=== PATIENT | female | born 1965 | race Caucasian/White ===

== ENCOUNTER 2020-01-28 22:10 | Emergency (ER) | payer SELFPAY ==
[2020-01-28 22:26] VITALS: BP 164/99; PULSE 7
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
[2020-01-29] MEDS: SULBACTAM NA IVPUSH ONE (00:17)
[2020-01-29] MEDS: Sodium Chloride 0.9% 100 ML ONE (00:17)
[2020-01-29] MEDS: AMPICILLIN IVPUSH ONE (00:17)
== END 2020-01-29 00:45 ==
LOC: CC.ED 22:10
DX: S02.85XA Fracture of orbit, unspecified, initial encounter for closed fracture (principal); S02.631A Fracture of coronoid process of right mandible, initial encounter for closed fracture; S02.841A Fracture of lateral orbital wall, right side, initial encounter for closed fracture; S02.40DA Maxillary fracture, left side, initial encounter for closed fracture; S02.40EA Zygomatic fracture, right side, initial encounter for closed fracture; F10.129 Alcohol abuse with intoxication, unspecified; I10 Essential (primary) hypertension; W01.0XXA Fall on same level from slipping, tripping and stumbling without subsequent striking against object, initial encounter; Y92.009 Unspecified place in unspecified non-institutional (private) residence as the place of occurrence of the external cause
CPT/HCPCS: 70486; 96374; 99285-25; J0295; J7050

== ENCOUNTER 2021-06-12 16:10 | Emergency (ER) | payer MEDICAID ==
[2021-06-12] MEDS ORDERED: Sodium Chloride 0.9% 10 ML Syringe FLUSH PRN (16:31)
[2021-06-12] MEDS: cloNIDine 0.1 MG Tab PO ONE (16:41)
[2021-06-12] MEDS: Acetaminophen 500 MG Tab PO ONE (16:41)
[2021-06-12] MEDS: Sodium Chloride 0.9% 1,000 ML IV SCH (16:42)
[2021-06-12 17:22] LABS: CHLORIDE,CL 98 mEq/L (98-106); SODIUM,NA 139 mEq/L (136-145)
[2021-06-12 17:33] LABS: CORONAVIRUS COVID-19 NAA NEGATIVE (NEGATIVE); RESPIRATORY SYNCYTIAL VIR NAA NEGATIVE (NEGATIVE)
[2021-06-12] MEDS: cefTRIAXone 1 GM Vial IVPUSH ONE (17:36)
== END 2021-06-12 18:10 | disposition home or self-care (01) ==
LOC: CC.ED 16:10
DX: N39.0 Urinary tract infection, site not specified (principal); I16.9 Hypertensive crisis, unspecified; I10 Essential (primary) hypertension; Z20.822 Contact with and (suspected) exposure to COVID-19
CPT/HCPCS: 0241U; 36415; 70450; 71045; 80053; 80307; 81001; 83605; 84484; 85025; 85379; 85652; 86140; 87040; 87086; 87088; 87186; 93005; 96374; 99284-25; A9270-GY; J0696; J7030

== ENCOUNTER 2024-12-20 14:38 | Observation (INO) | payer MEDICAID ==
[2024-12-20 14:59] LABS: BASOPHILS ABSOLUTE AUTO 0.06 10^3/uL (0.00-0.50); BASOPHILS PERCENT AUTO 0.9 % (0-1); EOSINOPHILS ABSOLUTE AUTO 0.02 10^3/uL (0.00-1.50); EOSINOPHILS PERCENT AUTO 0.3 % (0-6); IMMATURE GRAN ABSOLUTE AUTO 0.01 10^3/uL (0.00-0.49); IMMATURE GRAN PERCENT AUTO 0.2 % (0.0-4.9); LYMPHOCYTES ABSOLUTE AUTO 1.28 10^3/uL (0.60-5.00); LYMPHOCYTES PERCENT AUTO 20.0 % (24-44); MONOCYTES ABSOLUTE AUTO 0.58 10^3/uL (0.00-1.50); MONOCYTES PERCENT AUTO 9.1 % (0-10); NEUTROPHILS ABSOLUTE AUTO 4.45 x10^3/uL (1.80-8.00); NEUTROPHILS PERCENT AUTO 69.5 % (41-71); PLATELET COUNT,PLT 138 10^3/uL (150-400); RED BLOOD CELL COUNT 4.24 x10^6/uL (4.00-5.50); WHITE BLOOD CELL COUNT,WBC 6.4 10^3/uL (4.0-11.0)
[2024-12-20 15:15] LABS: ALANINE AMINOTRANSFERASE,ALT 64 U/L (12-78); ASPARTATE AMNIOTRANSFERASE,AST 297 U/L (15-37); BILIRUBIN TOTAL 1.2 mg/dL (0.0-1.0); BLOOD UREA NITROGEN,BUN 11 mg/dL (7-18); CARBON DIOXIDE,CO2 27 mmol/L (21-32); CHLORIDE,CL 90 mEq/L (98-106); CREATININE 0.8 mg/dL (0.6-1.0); GLUCOSE RANDOM 108 mg/dL (75-99); POTASSIUM,K 3.7 mEq/L (3.5-5.0); PROTEIN TOTAL,TP 8.4 g/dL (6.4-8.2); SODIUM,NA 134 mEq/L (136-145)
[2024-12-20 15:16] LABS: ESTIMATED GFR 84 mL/min (>=60)
[2024-12-20 15:30] LABS: APPEARANCE,URINE CLEAR (CLEAR); GLUCOSE,URINE NEGATIVE (NEGATIVE); OCCULT BLOOD,URINE TRACE-INTACT (NEGATIVE)
[2024-12-20] MEDS: Ondansetron 4 MG/2 ML SDV IVPUSH ONE (15:39)
[2024-12-20] MEDS: Thiamine 200 MG/2 ML MDV IVPUSH ONE (15:43)
[2024-12-20 15:48] LABS: EPITHELIAL CELLS,URINE OCCASIONAL /HPF (NOT SEEN)
[2024-12-20] MEDS: Folic Acid 50 MG/10 ML MDV IVPUSH ONE (15:49)
[2024-12-20] MEDS: Magnesium Sulfate 2 GM/50 mL 2 GM in Premix Bag 1 BAG IV ONE (16:04)
[2024-12-20] MEDS ORDERED: Sodium Chloride 0.9% 10 ML Syringe FLUSH PRN (17:27)
[2024-12-20] MEDS ORDERED: Ondansetron 4 MG Tab.DIS PO PRN (17:27)
[2024-12-20] MEDS ORDERED: Ondansetron 4 MG/2 ML SDV IV PRN (17:27)
[2024-12-21 07:32] LABS: ALANINE AMINOTRANSFERASE,ALT 47.0 U/L (12-78); ASPARTATE AMNIOTRANSFERASE,AST 275.0 U/L (15-37); BILIRUBIN TOTAL 1.5 mg/dL (0.0-1.0); BLOOD UREA NITROGEN,BUN 12.0 mg/dL (7-18); CARBON DIOXIDE,CO2 29.0 mmol/L (21-32); CHLORIDE,CL 97.0 mEq/L (98-106); CREATININE 0.7 mg/dL (0.6-1.0); EST CRCL DRUG DOSING (CG) 63.69 mL/min; GLUCOSE RANDOM 99.0 mg/dL (75-99); POTASSIUM,K 3.4 mEq/L (3.5-5.0); PROTEIN TOTAL,TP 6.3 g/dL (6.4-8.2); SODIUM,NA 136.0 mEq/L (136-145)
[2024-12-21 07:38] LABS: BASOPHILS ABSOLUTE AUTO 0.03 10^3/uL (0.00-0.50); BASOPHILS PERCENT AUTO 0.8 % (0-1); EOSINOPHILS ABSOLUTE AUTO 0.06 10^3/uL (0.00-1.50); EOSINOPHILS PERCENT AUTO 1.6 % (0-6); ESTIMATED GFR 98.0 mL/min (>=60); IMMATURE GRAN ABSOLUTE AUTO 0.00 10^3/uL (0.00-0.49); IMMATURE GRAN PERCENT AUTO 0.0 % (0.0-4.9); LYMPHOCYTES ABSOLUTE AUTO 0.83 10^3/uL (0.60-5.00); LYMPHOCYTES PERCENT AUTO 22.4 % (24-44); MONOCYTES ABSOLUTE AUTO 0.27 10^3/uL (0.00-1.50); MONOCYTES PERCENT AUTO 7.3 % (0-10); NEUTROPHILS ABSOLUTE AUTO 2.52 x10^3/uL (1.80-8.00); NEUTROPHILS PERCENT AUTO 67.9 % (41-71); PLATELET COUNT,PLT 77 10^3/uL (150-400); RED BLOOD CELL COUNT 3.21 x10^6/uL (4.00-5.50); WHITE BLOOD CELL COUNT,WBC 3.7 10^3/uL (4.0-11.0)
[2024-12-21 08:39] VITALS: BP 147/86; PULSE 80
== END 2024-12-21 11:00 | disposition home or self-care (01) ==
LOC: CC.FCMC 14:38 → CC.ACU 14:38 → CC.MS 16:34 → UNDOADMOB 16:34 → CC.MS 17:24
PROVIDERS: ADMIT Nurse Practitioner Family; ATTEND Nurse Practitioner Family
DX: F10.139 Alcohol abuse with withdrawal, unspecified (principal); E83.42 Hypomagnesemia; R13.10 Dysphagia, unspecified; E86.0 Dehydration; R00.2 Palpitations; F41.9 Anxiety disorder, unspecified; I10 Essential (primary) hypertension; Z79.899 Other long term (current) drug therapy
CPT/HCPCS: 36415; 80053; 81001; 83735; 84484; 85025; 86140; 93005; A9270-GY; J1808; J2405; J2470; J3411; J3475; J7030

== ENCOUNTER 2025-01-10 12:14 | Day surgery (SDC) | payer MEDICAID ==
[~2025-01-10 12:14] MED LIST: Lactated Ringers 1,000 ML IV SCH
[2025-01-10] MEDS ORDERED: fentaNYL 50 MCG/ML SDV ONE ×2 (14:24)
[2025-01-10] MEDS ORDERED: Ketamine 200 MG/20 ML MDV ONE (14:24)
[2025-01-10] MEDS ORDERED: Midazolam 1 MG/ML 2 ML SDV ONE (14:24)
[2025-01-10] MEDS ORDERED: Propofol 200 MG/20 ML SDV ONE ×3 (14:24)
== END 2025-01-10 16:15 | disposition home or self-care (01) ==
LOC: CC.SDS 12:14
PROVIDERS: ATTEND Surgery
DX: Z12.11 Encounter for screening for malignant neoplasm of colon (principal); D12.3 Benign neoplasm of transverse colon; D12.2 Benign neoplasm of ascending colon; K64.8 Other hemorrhoids; K64.4 Residual hemorrhoidal skin tags; K21.00 Gastro-esophageal reflux disease with esophagitis, without bleeding; Z79.899 Other long term (current) drug therapy
CPT/HCPCS: 00811; J1920; J2250; J2704; J3010; J3490